=== PATIENT | male | born 1940 | race Caucasian/White ===

== ENCOUNTER 2018-07-28 08:13 | Inpatient (IN) | payer MEDICARE, OTHER | END 2018-07-30 16:15 | disposition home health service (06) | LOC: PAS IN 08:13 → ORTHO 4S 14:30 | PROC: 0SRD0J9 Replacement of Left Knee Joint with Synthetic Substitute, Cemented, Open Approach (ICD-10-PCS; principal; 2018-07-28 10:22) | DX: M17.12 Unilateral primary osteoarthritis, left knee (principal); D62 Acute posthemorrhagic anemia; G47.30 Sleep apnea, unspecified ==

== ENCOUNTER 2018-12-01 05:19 | Inpatient (IN) | payer MEDICARE, OTHER | END 2018-12-01 06:45 | disposition home or self-care (01) | LOC: PAS IN 05:19 | DX: M17.11 Unilateral primary osteoarthritis, right knee (principal) ==

== ENCOUNTER 2019-02-02 10:25 | Inpatient (IN) | payer MEDICARE, OTHER ==
[2019-01-22 12:06] LABS: BASOPHILS % (AUTO) 0.5 % (0-1); EOSINOPHILS # (AUTO) 0.1 X10'3 (0-0.9); EOSINOPHILS % (AUTO) 1.7 % (0-6); LYMPHOCYTES # (AUTO) 1.6 X10'3 (1.1-4.8); LYMPHOCYTES % (AUTO) 21.1 % (21-51); MEAN CORPUSCULAR HEMOGLOBIN 34.1 PG (27.0-31.0); MEAN CORPUSCULAR HGB CONC 34.8 g/dL (33.0-36.5); MEAN CORPUSCULAR VOLUME 97.9 FL (78-98); MEAN PLATELET VOLUME 8.6 FL (7.4-10.4); MONOCYTES % (AUTO) 13.5 % (2-12); NEUTROPHILS # (AUTO) 4.9 X10'3 (1.8-7.7); NEUTROPHILS % (AUTO) 63.2 % (42-75); PRE OP HEMATOCRIT 42.2 % (42.0-52.0); PRE OP HEMOGLOBIN 14.7 g/dL (14.0-17.9); PRE OP PLATELET COUNT 225 X10'3 (140-440); RED BLOOD COUNT 4.31 X10'6 (4.70-6.10); RED CELL DISTRIBUTION WIDTH 13.3 % (11.5-14.5)
[2019-01-22 12:19] LABS: PRE OP INR 1.1 INR; PRE OP PROTIME 10.7 SECONDS (9.0-12.0)
[2019-01-22 12:22] LABS: CLARITY,URINE CLEAR (Clear); COLOR,URINE YELLOW (Yellow); GLUCOSE, URINE NEGATIVE (Neg); KETONES,URINE NEGATIVE (Neg); LEUKOCYTE ESTERASE ,URINE NEGATIVE (Neg); NITRITES, URINE NEGATIVE (Neg); OCCULT BLOOD,URINE NEGATIVE (Neg); PH,URINE 6.5 (4.8-8.0); PROTEIN,URINE NEGATIVE (Neg); UROBILINOGEN,URINE 0.2 E.U/dL (0.2-1.0)
[2019-01-22 12:25] LABS: UA COLLECTION TYPE CLN CATCH MIDSTREAM
[2019-01-22 12:37] LABS: ALBUMIN 3.9 G/DL (3.4-5.0); ALBUMIN/GLOBULIN RATIO 1.1 (1.1-1.5); ALKALINE PHOSPHATASE 95 IU/L (46-116); BLOOD UREA NITROGEN 15 MG/DL (7-18); BUN/CREATININE RATIO 19.7 (5.4-32.0); CALCIUM 9.5 MG/DL (8.5-10.1); CHLORIDE 101 MMOL/L (99-107); CREATININE 0.76 MG/DL (0.60-1.10); PRE OP ALT 31 U/L (30-65); PRE OP ANION GAP 11 (8-16); PRE OP AST 16 U/L (10-37); PRE OP BILIRUB, TOTAL 0.4 MG/DL (0.0-1.0); PRE OP GLUCOSE 96 MG/DL (70-104); PRE OP POTASSIUM 3.7 MMOL/L (3.4-5.1); PRE OP SODIUM 136 MMOL/L (135-145); TOTAL CARBON DIOXIDE 24.1 MMOL/L (24-32); TOTAL PROTEIN 7.3 G/DL (6.4-8.2); eGFR > 90 ML/MIN
[~2019-02-02] VITALS: Ht 188 cm; Wt 118.6 kg
[2019-02-02] VITALS (19 sets, daily range): BP systolic 115–160; BP diastolic 43–77
[~2019-02-02 10:25] MED LIST: AMLO-507 PO; BIMA2.5D OP; CHLO25TA2 PO; MONT10TA24 PO; MULT1TAB74 PO; TRUSOPT EACHEYE
[2019-02-02] MEDS ORDERED: celeCOXIB 100mg capsule PO ONE (11:45)
[2019-02-02] MEDS ORDERED: gabapentin 300mg capsule PO ONE (11:45)
[2019-02-02] MEDS ORDERED: famotidine 20mg tablet PO ONE (11:45)
[2019-02-02] MEDS ORDERED: cefazolin/dext.iso 2gm/100 ML IV ONE (11:45)
[2019-02-02] MEDS ORDERED: tranexamic acid inj. 1,500 MG in normal saline 100ml IV soln 100 ML IV ONE (11:45)
[2019-02-02] MEDS ORDERED: ringers solution, lacted 1,000 ML IV SCH ×2 (11:45→13:52)
[2019-02-02] MEDS ORDERED: acetaminophen 325mg tablet PO ONE (11:45)
[2019-02-02] MEDS ORDERED: ROPIVAcaine 0.5% (5mg/ml) 30ml vial ONE ×2 (12:17→14:29)
[2019-02-02] MEDS ORDERED: sevoflurane 250ml liquid IH ONE (13:06)
[2019-02-02] MEDS ORDERED: ceFAZolin 1000mg inj ONE (13:06)
[2019-02-02] MEDS ORDERED: fentaNYL/PF 50MCG/1 ML 2ML syringe ONE (13:10)
[2019-02-02] MEDS ORDERED: MIDAZolam 5mg/5ml vial ONE (13:10)
[2019-02-02] MEDS ORDERED: HYDROmorphone inj. 0.5 MG/0.5 ML DISP.SYRIN IV PRN ×2 (13:55)
[2019-02-02] MEDS ORDERED: ondansetron/PF 4mg/2ml inj IV PRN ×2 (13:55→15:45)
[2019-02-02] MEDS ORDERED: morphine 4 MG/ML inj SYRINge IV PRN ×2 (13:55)
[2019-02-02] MEDS ORDERED: dexamethasone sod phosphate 4mg/ml inj. ONE (14:05)
[2019-02-02] MEDS ORDERED: LIDOcaine 2% (20mg/ml) 5ml vial ONE (14:05)
[2019-02-02] MEDS ORDERED: propofol inj 20 ML IV ONE (14:05)
[2019-02-02] MEDS ORDERED: succinylcholine 20mg/ml inj IV ONE (14:05)
[2019-02-02] MEDS ORDERED: morphine 10mg/ml inj. ONE (14:06)
[2019-02-02] MEDS ORDERED: ePHEDrine 50MG/ML INJ. ONE (15:43)
[2019-02-02] MEDS ORDERED: magnesium hydroxide 30ml (MOM) UD suspension PO PRN (15:45)
[2019-02-02] MEDS ORDERED: diphenhydrAMINE 25mg capsule PO PRN (15:45)
[2019-02-02] MEDS ORDERED: acetaminophen 325mg tablet PO PRN (15:45)
[2019-02-02] MEDS ORDERED: bisacodyl 10mg suppository rectal RC PRN (15:45)
[2019-02-02] MEDS ORDERED: HYDROmorphone 1 mg/ml syringe IV PRN (15:45)
[2019-02-02] MEDS ORDERED: oxyCODONE/APAP 10/325mg tablet PO PRN (15:45)
--- NOTE | 2019-02-02 16:12 | NUR ---
Received from OR via BED, accompanied by Anesthesiologist DR RAMIREZ and report given by Anesthesiologist. PT DROWSY, DENIES PAIN, RIGHT KNEE W/DRSG, ICE PACK, LEG WRAP AND BRACE CDI. Addendum: 02/02/19 at 1636 by Laura Sheehan RN Amended: Links added.
--- NOTE | 2019-02-02 17:42 | NUR ---
Report called to receiving nurse. Transferred PT IN STABLE CONDITION, NAUSEA SUBSIDED, PAIN IMPROVED, PT STATES IS MIMINAL via BED, GLASSES, UPPER PARTIAL, CPAP, 1 BAG OF PERSONAL Belongings SENT W/PT TO ROOM 4007A, RECEIVING RN AT BEDSIDE TO RECEIVE PT, BLL, CALL LIGHT GIVEN, SIDE RAILS UP X 2, AT BEDSIDE. Special Issues communicated to receiving nurse. YES. Addendum: 02/02/19 at 1750 by Laura Sheehan RN Amended: Links added.
--- NOTE | 2019-02-02 18:04 | NUR ---
gave report to vidhi sifuentes
--- NOTE | 2019-02-02 18:24 | NUR ---
Patient in room ORTHO 4007. I have received report from Ai ROGERS and had the opportunity to ask questions and assume patient care. Addendum: 02/03/19 at 4563 by Vanessa Canales RN From Vanessa ROGERS at 0888
[2019-02-02] MEDS: ceFAZolin 1GM/D5W- ADD-VANTAGE 50 ML IV SCH (19:51)
[2019-02-02] MEDS: ascorbic acid 500mg tablet PO SCH (19:52)
[2019-02-02] MEDS: potassium cl 20mEq in 1/2 NS 1,000 ML IV SCH ×2 (19:55→23:42)
[2019-02-02] MEDS: dorzolamide 2% ophthalmic drops 10ml EACHEYE SCH (20:25)
[2019-02-02] MEDS: sennosides 8.6mg tablet PO SCH (20:26)
[2019-02-02] MEDS: montelukast 10mg tablet PO SCH (20:26)
[2019-02-02] MEDS: gabapentin 300mg capsule PO SCH (20:26)
[2019-02-02] MEDS: latanoprost 0.005% 2.5ml ophthalmic drops EACHEYE SCH (21:57)
[2019-02-02] MEDS: oxyCODONE/APAP 10/325mg tablet PO PRN (23:41)
[2019-02-03] MEDS: ceFAZolin 1GM/D5W- ADD-VANTAGE 50 ML IV SCH (04:04)
[2019-02-03] MEDS: potassium cl 20mEq in 1/2 NS 1,000 ML IV SCH (04:11)
[2019-02-03 05:00] VITALS: BP 148/66
[2019-02-03] MEDS: oxyCODONE/APAP 10/325mg tablet PO PRN ×5 (05:01→23:47)
[2019-02-03 05:55] LABS: BASOPHILS % (AUTO) 0 % (0-1); EOSINOPHILS % (AUTO) 0 % (0-6); LYMPHOCYTES % (AUTO) 8.5 % (21-51); MEAN CORPUSCULAR HEMOGLOBIN 34.8 PG (27.0-31.0); MEAN CORPUSCULAR VOLUME 99.5 FL (78-98); MEAN PLATELET VOLUME 8.1 FL (7.4-10.4); MONOCYTES # (AUTO) 1.1 X10'3 (0-0.9); MONOCYTES % (AUTO) 9.2 % (2-12); NEUTROPHILS # (AUTO) 9.6 X10'3 (1.8-7.7); NEUTROPHILS % (AUTO) 82.3 % (42-75); PLATELET COUNT 195 X10'3 (140-440); RED BLOOD COUNT 3.72 X10'6 (4.70-6.10); RED CELL DISTRIBUTION WIDTH 13.2 % (11.5-14.5); WHITE BLOOD COUNT 11.6 X10'3 (4.5-11.0)
--- NOTE | 2019-02-03 06:10 | NUR ---
Problems reprioritized. Patient report given, questions answered & plan of care reviewed with Zayra mosher.
[2019-02-03 06:15] LABS: ANION GAP 8 (8-16); CHLORIDE 105 MMOL/L (99-107); POTASSIUM 4.1 MMOL/L (3.5-5.1); SODIUM 138 MMOL/L (135-145); TOTAL CARBON DIOXIDE 25.4 MMOL/L (24-32)
--- NOTE | 2019-02-03 06:44 | NUR ---
Received report from Vanessa ROGERS
[2019-02-03] MEDS ORDERED: warfarin 5mg tablet PO ONE (07:00)
[2019-02-03] MEDS: ascorbic acid 500mg tablet PO SCH ×2 (07:30→19:40)
[2019-02-03] MEDS: multivitamins, therapeutics tablet PO SCH (07:30)
[2019-02-03] MEDS: dorzolamide 2% ophthalmic drops 10ml EACHEYE SCH ×2 (07:31→19:40)
[2019-02-03] MEDS: losartan 50mg tablet PO SCH (07:31)
[2019-02-03] MEDS: gabapentin 300mg capsule PO SCH ×3 (07:31→21:52)
[2019-02-03] MEDS: amLODIPine 5mg tablet PO SCH (07:31)
[2019-02-03] MEDS: chlorthalidone 25mg tablet PO SCH (07:33)
[2019-02-03 10:00] VITALS: BP 123/57
--- NOTE | 2019-02-03 14:08 | NUR ---
Joint replacement consult: Pt/SO seen by KEDAR for written/verbal high protein ed w/ RD contact information provided. Pt agrees to double eggs with breakfast; dietary notified. Addendum: 02/03/19 at [address] Amended: Links added.
[2019-02-03] MEDS: diphenhydrAMINE 25mg capsule PO PRN (14:29)
[2019-02-03 18:00] VITALS: BP 143/59
--- NOTE | 2019-02-03 18:15 | NUR ---
Patient in room ORTHO 4007. I have received report from Zayra ROGERS and had the opportunity to ask questions and assume patient care.
[2019-02-03] MEDS: celeCOXIB 100mg capsule PO SCH (19:40)
[2019-02-03] MEDS: latanoprost 0.005% 2.5ml ophthalmic drops EACHEYE SCH (21:52)
[2019-02-03] MEDS: montelukast 10mg tablet PO SCH (21:52)
[2019-02-03] MEDS: sennosides 8.6mg tablet PO SCH (21:52)
[2019-02-03 22:00] VITALS: BP 154/64
[2019-02-04] MEDS: oxyCODONE/APAP 10/325mg tablet PO PRN ×2 (05:01→12:10)
[2019-02-04 05:47] LABS: BASOPHILS % (AUTO) 0.3 % (0-1); EOSINOPHILS # (AUTO) 0.5 X10'3 (0-0.9); EOSINOPHILS % (AUTO) 4.5 % (0-6); HEMATOCRIT 38.1 % (42.0-52.0); HEMOGLOBIN 13.3 g/dl (14.0-17.9); LYMPHOCYTES # (AUTO) 1.2 X10'3 (1.1-4.8); LYMPHOCYTES % (AUTO) 10.7 % (21-51); MEAN CORPUSCULAR HEMOGLOBIN 34.4 PG (27.0-31.0); MEAN CORPUSCULAR HGB CONC 34.8 g/dL (33.0-36.5); MEAN PLATELET VOLUME 8.3 FL (7.4-10.4); MONOCYTES # (AUTO) 1.7 X10'3 (0-0.9); MONOCYTES % (AUTO) 15.9 % (2-12); NEUTROPHILS # (AUTO) 7.5 X10'3 (1.8-7.7); NEUTROPHILS % (AUTO) 68.6 % (42-75); PLATELET COUNT 210 X10'3 (140-440); RED BLOOD COUNT 3.85 X10'6 (4.70-6.10); RED CELL DISTRIBUTION WIDTH 13.5 % (11.5-14.5)
--- NOTE | 2019-02-04 06:08 | NUR ---
Problems reprioritized. Patient report given, questions answered & plan of care reviewed with Zayra ROGERS.
[2019-02-04 06:42] VITALS: BP 154/60
[2019-02-04 07:27] LABS: PLATELET ESTIMATE NORMAL; TOTAL CELLS COUNTED 100
[2019-02-04] MEDS: celeCOXIB 100mg capsule PO SCH ×2 (07:31→21:16)
[2019-02-04] MEDS: gabapentin 300mg capsule PO SCH ×3 (07:31→21:15)
[2019-02-04] MEDS: multivitamins, therapeutics tablet PO SCH (07:31)
[2019-02-04] MEDS: ascorbic acid 500mg tablet PO SCH ×2 (07:31→21:16)
[2019-02-04] MEDS: chlorthalidone 25mg tablet PO SCH (07:34)
[2019-02-04] MEDS: amLODIPine 5mg tablet PO SCH (07:34)
[2019-02-04] MEDS: losartan 50mg tablet PO SCH (07:35)
[2019-02-04] MEDS ORDERED: ASPI-1264 PO (08:08)
[2019-02-04] MEDS: dorzolamide 2% ophthalmic drops 10ml EACHEYE SCH ×2 (08:18→18:49)
[2019-02-04 10:00] VITALS: BP 121/53
[2019-02-04] MEDS ORDERED: warfarin 3mg tablet PO ONE (10:00)
[2019-02-04] MEDS: diphenhydrAMINE 25mg capsule PO PRN (10:20)
[2019-02-04] MEDS ORDERED: acetaminophen 325mg tablet PO PRN (15:45)
[2019-02-04 18:00] VITALS: BP 138/49
[2019-02-04] MEDS: montelukast 10mg tablet PO SCH (21:16)
[2019-02-04] MEDS: sennosides 8.6mg tablet PO SCH (21:16)
[2019-02-04] MEDS: latanoprost 0.005% 2.5ml ophthalmic drops EACHEYE SCH (21:20)
[2019-02-04 22:00] VITALS: BP 148/59
[2019-02-05] MEDS: oxyCODONE/APAP 10/325mg tablet PO PRN ×2 (05:17→10:25)
[2019-02-05 06:00] VITALS: BP 145/60
--- NOTE | 2019-02-05 06:10 | NUR ---
Patient in room ORTHO 4007. I have received report from MACKENZIE ROGERS and had the opportunity to ask questions and assume patient care.
[2019-02-05 06:54] LABS: BASOPHILS % (AUTO) 0.2 % (0-1); EOSINOPHILS # (AUTO) 0.5 X10'3 (0-0.9); EOSINOPHILS % (AUTO) 4.9 % (0-6); HEMATOCRIT 35.9 % (42.0-52.0); HEMOGLOBIN 12.6 g/dl (14.0-17.9); LYMPHOCYTES # (AUTO) 1.2 X10'3 (1.1-4.8); LYMPHOCYTES % (AUTO) 11.6 % (21-51); MEAN CORPUSCULAR HEMOGLOBIN 34.6 PG (27.0-31.0); MEAN CORPUSCULAR VOLUME 98.8 FL (78-98); MEAN PLATELET VOLUME 8.7 FL (7.4-10.4); MONOCYTES # (AUTO) 1.4 X10'3 (0-0.9); MONOCYTES % (AUTO) 13.8 % (2-12); NEUTROPHILS % (AUTO) 69.5 % (42-75); PLATELET COUNT 202 X10'3 (140-440); RED BLOOD COUNT 3.63 X10'6 (4.70-6.10); RED CELL DISTRIBUTION WIDTH 13.5 % (11.5-14.5); WHITE BLOOD COUNT 10.1 X10'3 (4.5-11.0)
[2019-02-05 08:00] VITALS: BP 148/53
[2019-02-05] MEDS: chlorthalidone 25mg tablet PO SCH (08:00)
[2019-02-05] MEDS: amLODIPine 5mg tablet PO SCH (08:00)
[2019-02-05] MEDS: losartan 50mg tablet PO SCH (08:00)
[2019-02-05] MEDS: dorzolamide 2% ophthalmic drops 10ml EACHEYE SCH (08:07)
[2019-02-05] MEDS: celeCOXIB 100mg capsule PO SCH (08:08)
[2019-02-05] MEDS: ascorbic acid 500mg tablet PO SCH (08:08)
[2019-02-05] MEDS: gabapentin 300mg capsule PO SCH (08:08)
[2019-02-05] MEDS: multivitamins, therapeutics tablet PO SCH (08:08)
[2019-02-05 10:00] VITALS: BP 108/58
[2019-02-05] MEDS ORDERED: warfarin 5mg tablet PO ONE (10:00)
--- NOTE | 2019-02-05 10:50 | NUR ---
PATIENT DC HOME SAFELY WITH NORI CARGO. ALL BELONGINGS IN POSSESSION. PATIENT VERBALIZES UNDERSTANDING OF DISCHARGE INSTRUCTIONS.
== END 2019-02-05 10:58 | disposition home health service (06) | DRG 470 ==
LOC: PAS IN 10:25 → EDSTATUS 13:45 → ORTHO 4S 17:44
PROVIDERS: ADMIT Specialist; ATTEND Specialist
PROC: 3E0T3BZ Introduction of Anesthetic Agent into Peripheral Nerves and Plexi, Percutaneous Approach (ICD-10-PCS; 2019-02-02)
PROC: 0SRC0J9 Replacement of Right Knee Joint with Synthetic Substitute, Cemented, Open Approach (ICD-10-PCS; principal; 2019-02-02 13:06)
PROC: 5A09357 Assistance with Respiratory Ventilation, Less than 24 Consecutive Hours, Continuous Positive Airway Pressure (ICD-10-PCS; 2019-02-03)
PROC: 5A09357 Assistance with Respiratory Ventilation, Less than 24 Consecutive Hours, Continuous Positive Airway Pressure (ICD-10-PCS; 2019-02-04)
DX: M17.11 Unilateral primary osteoarthritis, right knee (principal); D62 Acute posthemorrhagic anemia; G47.30 Sleep apnea, unspecified; Z96.652 Presence of left artificial knee joint; H40.9 Unspecified glaucoma; E83.119 Hemochromatosis, unspecified; I10 Essential (primary) hypertension; Z96.661 Presence of right artificial ankle joint; K21.9 Gastro-esophageal reflux disease without esophagitis; M21.161 Varus deformity, not elsewhere classified, right knee; Z96.641 Presence of right artificial hip joint; Z87.81 Personal history of (healed) traumatic fracture; Z79.899 Other long term (current) drug therapy
CPT/HCPCS: 36415; 73560; 80051; 80053; 81003; 82948; 85025; 85610; 85730; 87081; 97110; 97116; 97161; 97530; A4215; A6449; A6454; A7000; C1713; C1758; C1776; G0378; J0330; J0690; J1100; J2001; J2250; J2270; J2405; J2704; J2795; J3010; J3480; J7120; Q0163